=== PATIENT | female | born 1945 | race Caucasian/White ===

== ENCOUNTER → 2018-10-07 10:06 | Outpatient (CLI) | payer OTHER, SELFPAY ==
--- NOTE | 2018-10-07 10:10 | DI.RAD.S_ITS ---
PROCEDURE: XR LUMBAR SPINE 6V W BENDING INDICATIONS: L4/5 Spondylolisthesis TECHNIQUE: 7 views of the lumbar spine acquired. COMPARISON: None. FINDINGS: Bones: 5 nonrib-bearing vertebrae are present. There is grade one anterolisthesis of L4 on L5 No vertebral body compression fractures. No suspicious bony lesions. No gross pars defect is seen on oblique views. Degenerative endplate changes and bilateral facet arthrosis are noted at L4-5 and L5-S1 levels. Soft tissues: Overlying bowel gas pattern is normal. No suspicious soft tissue calcifications. Flexion/extension: There is decreased range of motion, with preserved lumbar spine alignment. IMPRESSION: Grade 1 anterolisthesis of L4 on L5. No gross pars defect is seen. Decreased range of motion with preserved lumbar spine alignment. Mild degenerative disc disease in lower lumbar spine as above. No acute compression fracture. Dictated by: Nolan Martin M.D. on 10/07/2018 at 11:42 Approved by: Nolan Martin M.D. on 10/07/2018 at 11:45
== END ==
PROVIDERS: PCP Family Medicine; Visit Provider Physical Medicine & Rehabilitation
DX: M43.16 Spondylolisthesis, lumbar region (principal); M48.061 Spinal stenosis, lumbar region without neurogenic claudication; M51.36 Other intervertebral disc degeneration, lumbar region
CPT/HCPCS: 72114

== ENCOUNTER → 2019-12-14 14:16 | Outpatient (CLI) | payer OTHER, SELFPAY ==
--- NOTE | 2019-12-14 14:17 | DI.MRI.S_ITS ---
PROCEDURE: MR LUMBAR SPINE WO CON INDICATIONS: L5 radiculopathy TECHNIQUE: Noncontrast sagittal T1 spin echo and T2 fast echo, sagittal STIR, axial T1 and T2 fast spin echo through the lumbar spine. In cases with scoliosis, additional coronal T2 fast spin echo may be performed. COMPARISON: [facility], MR, MR LUMBAR SPINE WO CON, 09/05/2016, 10:58. FINDINGS: Image quality: Excellent. Alignment and Curvature: Grade 1/2 anterolisthesis of L4 on L5. There is suggestion of L4 pars defects, in particular on the left although not well visualized due to superimposed degenerative change. Trace retrolisthesis of L5 on S1 Bone Marrow: No fracture. Multilevel degenerative endplate sclerosis and spurring. Diffuse facet arthropathy. Spinal Cord: Conus medullaris terminates at the L2 level. Visualized cord demonstrates normal signal and size. Paraspinous Soft Tissues: No paravertebral masses. L1-L2: Normal appearance. L2-L3: Normal appearance. L3-L4: Normal appearance. L4-L5: Severe canal stenosis. Complete effacement of both left and right lateral recesses. Moderate right and severe left foraminal stenosis. There is nerve root compression on both sides although left greater than right. However, this appears unchanged since 09/05/16. L5-S1: Mild canal stenosis. Partial effacement of both lateral recesses with bilaterally symmetric appearance. Mild foraminal narrowing. No interval change IMPRESSION: Lower lumbar spondylosis, suspected L4 pars defects and grade 1/2 anterolisthesis of L4 on L5. Associated severe canal narrowing at L4-L5. No interval change Moderate to severe bilateral foraminal stenoses at L4-L5, left greater than right. No interval change Dictated by: Elmo Sanders M.D. on 12/14/2019 at 15:09 Approved by: Elmo Sanders M.D. on 12/14/2019 at 15:16
== END ==
PROVIDERS: PCP Family Medicine; Referring Provider Physical Medicine & Rehabilitation; Visit Provider Physical Medicine & Rehabilitation
DX: M47.26 Other spondylosis with radiculopathy, lumbar region (principal); M48.061 Spinal stenosis, lumbar region without neurogenic claudication; M43.16 Spondylolisthesis, lumbar region
CPT/HCPCS: 72148

== ENCOUNTER → 2020-02-25 10:30 | Outpatient (CLI) | payer OTHER, SELFPAY ==
[2020-02-26 06:01] LABS: COVID19 Sendout Not Detected (Not Detect)
== END ==
PROVIDERS: PCP Family Medicine; Visit Provider Physician Assistant
DX: Z11.59 Encounter for screening for other viral diseases (principal)
CPT/HCPCS: 87635

== ENCOUNTER 2020-02-28 09:27 | Outpatient (CLI) | payer OTHER, SELFPAY ==
[2020-02-28] VITALS (9 sets, daily range): BP systolic 95–131; BP diastolic 54–69; PULSE 25–70; RESP 10–21; TEMP 36.8; O2SAT 97–100
--- NOTE | 2020-02-28 09:30 | DI.RAD.S_ITS ---
PROCEDURE: PAIN L/S TRANSFORAMINAL INJECT INDICATIONS: SPONDYLOSIS COMPARISON: None. FINDINGS: Fluoroscopic spot filming was performed to verify placement of spinal needles at the right-sided L4-5 level, as labeled on the films. Appropriate location(s) of the needle tip(s) was confirmed by injection of iodinated contrast. IMPRESSION: Right-sided L4-5 needle tip localization for epidural steroid injection through the neural foramen. Dictated by: Romario Hurst M.D. on 02/28/2020 at 12:29 Approved by: Romario Hurst M.D. on 02/28/2020 at 12:30
[2020-02-28] MEDS: MIDAZOLAM 5 MG/5 ML VIAL IV (10:42)
[2020-02-28] MEDS: fentaNYL 100 MCG/2 ML INJ 50 MCG IV (10:42)
[2020-02-28] MEDS: IOPAMIDOL 15 ML VIAL 3 ML INJ (10:46)
[2020-02-28] MEDS: BETAMETHASONE 30 MG/5 ML MDV 6 MG INJ (10:46)
[2020-02-28] MEDS: DEXAMETHASONE 10 MG/ML VIAL 20 MG INJ (10:46)
[2020-02-28] MEDS: BUPIVACAINE 0.25% (PF) VIAL 2 ML INJ (10:47)
--- NOTE | 2020-02-28 11:07 | P.PCN_ITS ---
Date/Time/Diagnoses Date of procedure: 02/28/20 Time of procedure: 11:07 Pre-procedure diagnosis: 1. FORAMINAL STENOSIS WITH LE SYMPTOMS Post-procedure diagnosis: same Procedure Notes Procedure: 1. FLUOROSCOPICALLY GUIDED CONTRAST CONTROLLED TRANSFORAMINAL EPIDURAL STEROID INJECTION - RIGHT L4/5 TFESI Indications: Ct is referred by for treatment of Foraminal Stenosis with Right LE Symptoms Physician: Piter Clay Total sedation minutes: 11 Complications: none Procedure in detail & Post-procedure care: FINDINGS Foraminal Nerve Root Compression secondary to disc disease and facet hypertrophy DESCRIPTION OF PROCEDURE Following review of allergy and review of potential side effects and complications, including, but not necessarily limited to, infection, allergic reaction, local tissue breakdown, stroke, temporary or permanent nerve injury, paralysis, and possible , the patient indicated that the patient understood and agreed to proceed. An informed consent document was signed by the patient, witnessed by a nurse, and placed in the patient's chart. Additionally, other treatment options including medications, modalities, and physical therapy were reviewed with the patient. After review of previous anaesthesic history and IV conscious sedation the patient was deemed safe to proceed with today?s procedure with IV conscious sedation as ASA class II designation. Safety time-out was performed to confirm patient ID, procedure to be performed and site of procedure. IV sedation was accomplished with a combination of 2mg of Versed and 50mcg of Fentanyl was administered by the RN after DO order, titrated to patient comfort during the course of the procedure while the patient remained responsive to all verbal commands In the prone position following sterile prep and drape of the lumbar region, the Right L4/5 posterior neuroforamen was identified fluoroscopically. The skin was anesthetized via a 25-gauge 1.5-inch needle with 1% lidocaine solution. At this point, a 25-gauge 3.5-inch spinal needle was atraumatically introduced and advanced under fluoroscopic guidance through the posterior Right L4/5 neuroforamen to approximately the anterior aspect of the canal. Depth was confirmed on lateral view. Following negative aspiration, injection of approximately 1.5cc of Isovue 200 under live fluoroscopy in the AP view confirmed excellent flow along the nerve root, into the epidural space without vascular or intrathecal uptake observed Radiological data, including multiple fluoroscopic views of the lumbosacral spine, reveal a spinal needle at the right L4/5 posterior neuroforamen. Subsequent views show flow of contrast material flowing superiorly and inferiorly along the nerve root confirming epidural flow. Subsequently, a test dose of 1.5 cc of 1% lidocaine solution was administered and patient was observed for two minutes for signs or symptoms of complications, including abdominal pain, shortness of breath, bilateral upper or lower extremit y weakness, nausea and vomiting, prior to steroid injection. At this point, a total of 3cc or 20mg of dexamethasone and 6mg of betamethasone was injected without incident. The procedure tolerated the procedure well without signs or symptoms of complications prior to transfer to the recovery area continued monitoring without incident. The patient was then transferred to the recovery area where they were observed for an appropriate time after the injection. The patient reported a VAS score of 7 prior to the procedure and a post- procedure VAS of 0. POST OP INSTRUCTIONS The patient was provided a Pain Log to continue to record their response to the target-specific procedure prior to follow-up visit with their referring physician. Additionally, specific post-injection care instructions and a contact number to our office were provided if concerns arise regarding possible complications associated with the procedure are suspected.
--- NOTE | 2020-02-28 11:34 | PC.NURSE ---
Pt ready for discharge meeting all requirements and on his way back to the hospital. Vitals 110/60, HR 56 SB, sats 97. Conversing and alert. Tolerating water and cookies. IV removed for discharge. Approximately - pt looked pale, questioned by nurse, patient asked for something to throw up in. As she was vomiting, became nonresponsibe and heart rate noted to show in 20's on tele. Pt's head held straight, turned to right side, code blue called. Team in post procedure room with Dr Clay as well. Pt reclined, turned to right side, IV Narcan given. New PIV placed in RUE. transferred to ER. TINA Meneses called to update.
== END 2020-02-28 11:16 | disposition home or self-care (01) ==
PROVIDERS: PCP Family Medicine; Referring Provider Physical Medicine & Rehabilitation; Visit Provider Physical Medicine & Rehabilitation
DX: M48.061 Spinal stenosis, lumbar region without neurogenic claudication (principal); M51.16 Intervertebral disc disorders with radiculopathy, lumbar region
CPT/HCPCS: 64483; 99152; J0702; J1100; J2250; J3010

== ENCOUNTER 2020-02-28 11:21 | Emergency (ER) | payer OTHER, SELFPAY ==
[2020-02-28] VITALS (9 sets, daily range): BP systolic 120–134; BP diastolic 61–76; PULSE 59–65; RESP 10–30; TEMP 36.4; O2SAT 98–100
--- NOTE | 2020-02-28 11:28 | DI.RAD.S_ITS ---
PROCEDURE: XR CHEST 1V INDICATIONS: cough possible aspiration TECHNIQUE: One view of the chest was acquired. COMPARISON: None. FINDINGS: Surgical changes and devices: None. Lungs and pleura: Lungs are clear. No pleural effusions or pneumothorax. Mediastinum: Mediastinal contours appear normal. Heart size is normal. Bones and chest wall: No suspicious bony lesions. Overlying soft tissues appear unremarkable. IMPRESSION: No evidence acute pulmonary process. Dictated by: Pérez Wilde M.D. on 02/28/2020 at 11:54 Approved by: Pérez Wilde M.D. on 02/28/2020 at 11:54
[2020-02-28] MEDS: ONDANSETRON 4 MG/2 ML INJ (11:33)
[2020-02-28 11:34] LABS: Add Manual Diff / Slide Review NO; Basophils Absolute Auto 0 /uL (0-100); Basophils Percent Auto 0.7 % (0-2); Eosinophils Absolute Auto 0 /uL (0-450); Eosinophils Percent Auto 0.9 % (2-4); Hematocrit 34.2 % (36-46); Hemoglobin 11.4 g/dL (12.0-16.0); Lymphocytes Absolute Auto 1800 /uL (1100-4500); Mean Corpuscular HGB Conc 33.3 % (30-36); Mean Corpuscular Hemoglobin 32.1 PG (26-34); Mean Corpuscular Volume 96.5 fL (80-100); Monocytes Absolute Auto 700 /uL (0-900); Monocytes Percent Auto 13.7 % (3-14); Neutrophils Absolute Auto 2700 /uL (1500-7000); Neutrophils Percent Auto 50.7 % (50-75); Platelet Count 196 X10^3/uL (150-400); Red Blood Cell Count 3.54 X10^6/uL (4.0-5.2); Red Cell Distribution Width 13.4 % (11.6-14.8); White Blood Cell Count 5.3 X10^3/uL (4.5-11.0)
--- NOTE | 2020-02-28 11:34 | ED_ITS ---
HPI - Syncope General Chief Complaint: Syncope Stated Complaint: Code Blue Time Seen by Provider: 02/28/20 11:23 Source: other Mode of arrival: other History of Present Illness HPI narrative: Patient is 75-year-old female who presents as a code blue. She had a spinal injection at L4-L5 today she got 50 micro g of fentanyl and 2 mg of Versed she was getting ready to be released when she passed out and heart rate went into the 20s. She had a brief loss of consciousness but started coming to slowly. She gets dizzy and lightheaded she vomited as well. MD complaint: loss of consciousness Related Data Home Medications Medication Instructions Recorded Confirmed amitriptyline 10 mg tablet 20 mg PO BEDTIME 12/01/18 02/20/20 calcium carbonate 430 mg calcium 450 mg PO BID tab 12/01/18 02/20/20 (1,000 mg) chewable tablet cholecalciferol (vitamin D3) 50 2,300 unit PO BID cap 12/01/18 02/20/20 mcg (2,000 unit) capsule ferrous sulfate 325 mg (65 mg 325 mg PO Q3D tab 12/05/19 02/20/20 iron) tablet Previous Rx's Medication Instructions Recorded gabapentin 300 mg capsule See Rx Instructions .ROUTE 11/23/19 .COMPLEX #90 capsule gabapentin 300 mg capsule 300 mg PO BEDTIME #180 cap 01/02/20 Allergies Allergy/AdvReac Type Severity Reaction Status Date / Time No Known Drug Allergies Allergy Verified 02/20/20 14:39 Review of Systems Review of Systems ROS Unobtainable: All systems reviewed & are unremarkable except as noted in HPI and below Constitutional Constitutional: Denies chills, Denies fever(s), Denies lethargy and Denies weakness Cardiovascular Cardiovascular: Denies chest pain, Denies edema, Reports lightheadedness and Denies dyspnea on exertion Respiratory Respiratory: Denies cough and Denies dyspnea on exertion Gastrointestinal Gastrointestinal: Denies abdominal pain, Reports nausea and Reports vomiting Musculoskeletal Musculoskeletal: Reports back pain and Denies numbness Integumentary/Breasts Skin/Breast: Denies pruritus, Denies erythema, Denies rash and Denies wounds Neurologic Neurologic: Denies numbness and Denies weakness Patient History Medical History Degenerative joint disease of knee (Acute) Gait instability (Acute) Raynauds phenomenon (Acute) Tonsillectomy planned (Acute) Surgical History H/O thyroidectomy (Acute) Social History Smoking Status: Never smoker Smoking Status: Never smoker alcohol intake frequency: 0-2 drinks per day Substance Use Type: does not use Exam Initial Vital Signs Initial Vital Signs: Vital Signs Temperature 97.6 F 02/28/20 11:24 Pulse Rate 65 02/28/20 11:24 Respiratory Rate 18 02/28/20 11:24 Blood Pressure 127/61 02/28/20 11:24 Pulse Oximetry 100 02/28/20 11:24 GENERAL: Pale responsive to voice HEENT: Head atraumatic,EOMI, pupils reactive, face symmetric, [moist] mucous membranes CARDIOVASCULAR: Regular rate and rhythm without murmurs, rubs or gallops. RESPIRATORY: Breath sounds equal bilaterally, no wheezes rales or rhonchi. ABDOMEN: Soft, nontender. Normoactive bowel sounds all 4 quadrants. No guarding or rebound. EXTREMITIES: Normal range of motion, no clubbing or edema. Neurovascularly int act NEUROLOGICAL: Alert and oriented x4. Evp Managing Director strength equal bilaterally SKIN: Warm, dry, no laceration, no petechiae, no rashes or lesions. Course Orders Ordered: ED Orders 02/28/20 11:21 EKG-12 Lead Stat 02/28/20 11:28 XR chest 1V Stat 02/28/20 11:30 Complete Blood Count AUTO DIFF Stat Comprehensive Metabolic Panel Stat 02/28/20 12:14 Troponin & CK Cardiac Panel Stat Vital Signs Vital signs: Vital Signs - 8 hr 02/28/20 11:24 02/28/20 11:26 02/28/20 11:30 Temperature 97.6 F Pulse Rate 65 65 62 Respiratory Rate 18 10 L 30 H Blood Pressure 127/61 120/69 Pulse Oximetry 100 100 100 02/28/20 11:45 02/28/20 12:00 02/28/20 12:15 Temperature Pulse Rate 59 L 61 61 Respiratory Rate 13 25 H 18 Blood Pressure 121/70 121/66 131/74 Pulse Oximetry 100 100 100 02/28/20 12:30 02/28/20 12:45 Temperature Pulse Rate 60 62 Respiratory Rate 19 11 L Blood Pressure 121/73 134/76 Pulse Oximetry 100 100 MDM - Syncope Lab Data Attestation: I reviewed the patient's lab results. Result diagrams: 02/28/20 11:30 02/28/20 11:30 Labs: Lab Results 02/28/20 02/28/20 02/28/20 Range/Units 11:30 11:30 12:14 WBC 5.3 (4.5-11.0) X10^3/uL RBC 3.54 L (4.0-5.2) X10^6/uL Hgb 11.4 L (12.0-16.0) g/dL Hct 34.2 L (36-46) % MCV 96.5 (80-100) fL MCH 32.1 (26-34) PG MCHC 33.3 (30-36) % RDW 13.4 (11.6-14.8) % Plt Count 196 (150-400) X10^3/uL Neut % (Auto) 50.7 (50-75) % Lymph % (Auto) 34.0 (25-40) % Winkler % (Auto) 13.7 (3-14) % Eos % (Auto) 0.9 L (2-4) % Baso % (Auto) 0.7 (0-2) % Neut # (Auto) 2700 (8418-5126) /uL Lymph # (Auto) 1800 (4659-0032) /uL Winkler # (Auto) 700 (0-900) /uL Eos # (Auto) 0 (0-450) /uL Baso # (Auto) 0 (0-100) /uL Sodium 137 (137-145) mmol/L Potassium 3.2 L (3.4-5.1) mmol/L Chloride 112 H (98-107) mmol/L Carbon Dioxide 22 (22-32) mmol/L BUN 12 (7-17) mg/dL Creatinine 0.50 L (0.52-1.04) mg/dL Estimated GFR > 60.0 (>60) mL/min BUN/Creatinine Ratio 24.0 H (6-22) Glucose 88 (80-110) mg/dL Calcium 6.8 L (8.4-10.2) mg/dL Total Bilirubin 0.4 (0.2-1.3) mg/dL AST 23 (14-36) IU/L ALT 10 (<35) IU/L Alkaline Phosphatase 43 (38-126) U/L Total Creatine Kinase 73 (30-135) U/L CK-MB (CK-2) TNP CK-MB (CK-2) Rel Index TNP Troponin I < 0.012 (0.01-0.034) ng/mL Total Protein 5.1 L (6.3-8.2) g/dL Albumin 2.8 L (3.5-5.0) g/dL Globulin 2.3 (1.7-4.1) g/dL Albumin/Globulin Ratio 1.2 (1.0-2.8) Point of Care Testing Glucose POC 100 Imaging Data Chest x-ray: Radiologist's Impression: PROCEDURE: XR CHEST 1V INDICATIONS: cough possible aspiration TECHNIQUE: One view of the chest was acquired. COMPARISON: None. FINDINGS: Surgical changes and devices: None. Lungs and pleura: Lungs are clear. No pleural effusions or pneumothorax. Mediastinum: Mediastinal contours appear normal. Heart size is normal. Bones and chest wall: No suspicious bony lesions. Overlying soft tissues appear unremarkable. IMPRESSION: No evidence acute pulmonary process. Dictated by: Pérez Wilde M.D. on 02/28/2020 at 11:54 Approved by: Pérez Wilde M.D. on 02/28/2020 at 11:54 ECG Data Attestation: I personally reviewed and interpreted this ECG as follows: Prior ECG tracings: not available for review Interpretation: Normal sinus rhythm rate 64 p.r. interval 125 QRS [address] changes MDM Narrative Medical decision making narrative: Strips were found off the monitor it appears that patient Eleazar down into the 40s she vomited passed out and likely had a vasovagal reaction. She was given Narcan initially to reverse the fentanyl however she was slowly starting to come around that time. She had no further vomiting after the Narcan. She did become more responsive the longer she was in the ER. Blood work is overall reassuring she is found to be slightly hypokalemic at this time she declines taking potassium chloride and would rather have her recheck with her primary care provider. Discharge Plan Departure Patient Disposition: Home Clinical Impression: Syncope, vasovagal, Acute hypokalemia Discharge Date/Time: 02/28/20 12:59 Instructions: DI for Syncope in Adults (Fainting) Activity Restrictions/Additional Instructions: *You have been diagnosed with fainting *What to do: Your episode of fainting is likely due to the medication he received for your procedure. Your potassium is noted to be slightly low at 3.2 recommend having it rechecked with your primary care provider. Increase fluids and rest today *Continue to take medications as directed *Follow up with your primary care provider in 2-3 days *Return to ER if you should have increasing shortness of breath, heart palpitations recurrent episode of passing out or any new, worsening or concerning symptoms Prescriptions: No Action gabapentin 300 mg capsule See Rx Instructions .ROUTE .COMPLEX Qty: 90 RF: 2 Antacid Ultra Strength 430 mg calcium (1,000 mg) tablet,chewable 450 mg PO BID RF: 0 cholecalciferol (vitamin D3) 2,000 unit capsule 2,300 unit PO BID RF: 0 ferrous sulfate [FerrouSul] 325 mg (65 mg iron) tablet 325 mg PO Q3D RF: 0 amitriptyline 10 mg tablet 20 mg PO BEDTIME RF: 0 gabapentin 300 mg capsule 300 mg PO BEDTIME Qty: 180 RF: 2 Referrals: Gianluca Vega MD [Primary Care Provider] -
--- NOTE | 2020-02-28 11:42 | PC.NURSE ---
[id number]: responded to Rapid Response in DI recovery. Pt drowsy and appeared to have emesis on shirt, pale, diaphoretic. 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 RN states pt's HR dahiana into the 20's for seconds before vomiting. Pt NSR on monitor at the time of code team arrival. Glucose 100. IV placed and labs drawn. 0.4mg Narcan given IVP. Pt placed on stretcher with cardiac montioring and taken to 6 in ED. AAOx3, NSR 60, EKG obtained by RT, Lungs clear, pt with nonproductive cough which she states started post vomiting. Dr Dhillon made aware and CXR ordered. States she is feeling improvement,just dizzy. NAD. at side. will continue to monitor.
[2020-02-28 11:44] LABS: Alanine Aminotransferase 10 IU/L (<35); Albumin 2.8 g/dL (3.5-5.0); Albumin Globulin Ratio 1.2 (1.0-2.8); Alkaline Phosphatase 43 U/L (38-126); Aspartate Aminotransferase 23 IU/L (14-36); Bilirubin Total 0.4 mg/dL (0.2-1.3); Blood Urea Nitrogen 12 mg/dL (7-17); Calcium 6.8 mg/dL (8.4-10.2); Carbon Dioxide 22 mmol/L (22-32); Chloride 112 mmol/L (98-107); Estimated Glomerular Filt Rate > 60.0 mL/min (>60); Globulin 2.3 g/dL (1.7-4.1); Glucose 88 mg/dL (80-110); HEMOLYSIS < 15 (0-50); Potassium 3.2 mmol/L (3.4-5.1); Sodium 137 mmol/L (137-145); Total Protein 5.1 g/dL (6.3-8.2)
--- NOTE | 2020-02-28 12:00 | PC.NURSE ---
SEE CODE FLOW SHEET FOR ADDITIONAL DOCUMENTATION
[2020-02-28 12:24] LABS: Creatine Kinase 73 U/L (30-135)
[2020-02-28 12:37] LABS: Troponin I < 0.012 ng/mL (0.01-0.034)
== END 2020-02-28 12:59 | disposition home or self-care (01) ==
PROVIDERS: Emergency Provider Emergency Medicine; PCP Family Medicine
DX: R55 Syncope and collapse (principal); E87.6 Hypokalemia; R11.2 Nausea with vomiting, unspecified; R05 Cough; M48.061 Spinal stenosis, lumbar region without neurogenic claudication; M51.16 Intervertebral disc disorders with radiculopathy, lumbar region; M43.16 Spondylolisthesis, lumbar region
CPT/HCPCS: 64483; 71045; 80053; 82550; 84484; 85025; 92950; 93005; 99152; 99283; 99285; J0702; J1100; J2250; J2310; J2405; J3010

== ENCOUNTER → 2020-05-07 09:20 | Outpatient (CLI) | payer OTHER, SELFPAY ==
--- NOTE | 2020-05-07 09:21 | DI.RAD.S_ITS ---
PROCEDURE: XR LUMBAR SPINE MIN 4V COMPARISON: [facility], , XR LUMBAR SPINE 6V W BENDING, 10/07/2018, 10:21. INDICATIONS: low back pain FINDINGS: Five views of the lumbar spine were performed. There is severe facet arthrosis at L4-5 causing grade 1 anterolisthesis and disc disease. The remaining disc spaces are well maintained. The sacroiliac joints have mild degenerative changes. No fracture, dislocation, or vertebral body height loss. A large amount of stool is identified consistent with constipation. IMPRESSION: 1. Degenerative disc disease and facet arthrosis at L4-5 with grade 1 anterolisthesis. 2. Constipation. Dictated by: Ra Stafford M.D. on 05/07/2020 at 9:36 Approved by: Ra Stafford M.D. on 05/07/2020 at 9:39
== END ==
PROVIDERS: PCP Family Medicine; Referring Provider Family Medicine; Visit Provider Physical Medicine & Rehabilitation
DX: M43.16 Spondylolisthesis, lumbar region (principal); M48.061 Spinal stenosis, lumbar region without neurogenic claudication; M51.36 Other intervertebral disc degeneration, lumbar region; M47.816 Spondylosis without myelopathy or radiculopathy, lumbar region; R26.81 Unsteadiness on feet; K59.00 Constipation, unspecified
CPT/HCPCS: 72110; 99213

== ENCOUNTER → 2020-05-21 11:14 | Outpatient (CLI) | payer OTHER, SELFPAY ==
[2020-05-21 12:03] LABS: COVID19 -Nasal RAPID Negative (Negative)
== END ==
PROVIDERS: PCP Family Medicine; Visit Provider Physician Assistant
DX: Z11.59 Encounter for screening for other viral diseases (principal)
CPT/HCPCS: 87635

== ENCOUNTER 2020-05-22 13:47 | Outpatient (CLI) | payer OTHER, SELFPAY ==
[2020-05-22] VITALS (11 sets, daily range): BP systolic 114–138; BP diastolic 61–87; PULSE 71–80; RESP 13–21; TEMP 36.4; O2SAT 93–100
--- NOTE | 2020-05-22 13:48 | DI.RAD.S_ITS ---
PROCEDURE: PAIN L INTERLAMINAR/CAUDAL INJ INDICATIONS: SPONDYLOSIS COMPARISON: None. FINDINGS: Fluoroscopic spot filming was performed to verify placement of spinal needles at the L4-5 paramedian interlaminar level(s), as labeled on the films. Appropriate location(s) of the needle tip(s) was confirmed by injection of iodinated contrast. IMPRESSION: Successful needle tip localization for L4-5 interlaminar epidural steroid injection. Dictated by: Romario Hurst M.D. on 05/22/2020 at 15:26 Approved by: Romario Hurst M.D. on 05/22/2020 at 15:26
[2020-05-22] MEDS: IOPAMIDOL 15 ML VIAL 3 ML INJ (14:24)
[2020-05-22] MEDS: MIDAZOLAM 5 MG/5 ML VIAL IV (14:25)
[2020-05-22] MEDS: BETAMETHASONE 30 MG/5 ML MDV 6 MG INJ (14:25)
[2020-05-22] MEDS: methylPREDNISolone acetate 80 MG/ML VIAL INJ (14:27)
[2020-05-22] MEDS: BUPIVACAINE 0.25% (PF) VIAL 5 ML SUBCUT (14:27)
--- NOTE | 2020-05-22 14:51 | P.PCN_ITS ---
Date/Time/Diagnoses Date of procedure: 05/22/20 Time of procedure: 14:51 Pre-procedure diagnosis: 1. HNP WITH RADICULAR FEATURES, 2. MULTILEVEL CENTRAL STENOSIS, Post-procedure diagnosis: same Procedure Notes Procedure: 1. FLUOROSCOPICALLY GUIDED CONTRAST CONTROLLED INTERLAMINAR EPIDURAL STEROID INJECTION -L4/5 Indications: Ct is referred by Dr. Vega for treatment of Bilateral Foraminal Stenosis R>L LE symptoms. Physician: Piter Clay Total Fluoroscopy time (seconds): 16 Total sedation minutes: 21 Complications: none Procedure in detail & Post-procedure care: FINDINGS Multilevel Central Spinal Stenosis with Nerve Root Compression DESCRIPTION OF PROCEDURE Fluoroscopically guided, contrast-controlled L4/5 translaminar epidural steroid injection. Following review of allergy and review of potential side effects and complications, including, but not necessarily limited to, infection, allergic reaction, local tissue breakdown, temporary as well as permanent nerve injury, paralysis, stroke and possible , the patient indicated that the patient understood and agreed to proceed. An informed consent document was signed by the patient, witnessed by a nurse, and placed in the patient's chart. Additionally, other treatment options including modalities, medications, and physical therapy were reviewed with the patient. After review of previous anaesthesic history and IV conscious sedation the patient was deemed safe to proceed with today?s procedure with IV conscious sedation as ASA class II designation. Safety time-out was performed to confirm patient ID, procedure to be performed and site of procedure. IV sedation was accomplished with a combination of 2mg of Versed was administered by the RN after DO order, titrated to patient comfort during the course of the procedure while the patient remained responsive to all verbal commands In the prone position, following sterile prep and drape of the lumbar region, the L4/5 translaminar space was identified fluoroscopically. The skin was anesthetized via a 25-gauge, 1.5inch needle with 1% lidocaine solution. At this point, a 22-gauge short bevel spinal needle was atraumatically introduced and advanced under fluoroscopic guidance into the region of the L4/5 translaminar space. Depth was confirmed on lateral view. Radiological data, including multiple fluoroscopic views of the lumbar spine, reveal a spinal needle at the L4/5 translaminar space. Lateral views then show placement of the needle in the epidural space. Subsequent views show contrast material flowing superiorly and inferiorly in the epidural space. No vascular or intrathecal uptake is observed. At this point, using loss of resistance technique with saline and air, the epidural space was entered. This was confirmed following negative aspiration with injection of approximately 1.5cc of Isovue 200, showing excellent epidural flow without vascular or intrathecal uptake. At this point, 1cc of 1% lidocaine solution combined with 3cc or 80mg of depomedrol and 12mg betamethasone was injected without incident. The patient tolerated the procedure well without signs or symptoms of complications prior to transfer to the recovery area continued monitoring without incident. The patient was then transferred to the recovery area where they were observed for an appropriate period of time after the injection. The patient reported a VAS score of 6 prior to the procedure and a post- procedure VAS of 0. POST OP INSTRUCTIONS The patient was provided a Pain Log to continue to record their response to the target-specific procedure prior to follow-up visit with their referring physician. Additionally, specific post-injection care instructions and a contact number to our office were provided if concerns arise regarding possible complications associated with the procedure are suspected.
== END 2020-05-22 15:05 | disposition home or self-care (01) ==
LOC: RAD 13:47
PROVIDERS: PCP Family Medicine; Referring Provider Physical Medicine & Rehabilitation; Visit Provider Physical Medicine & Rehabilitation
DX: M51.16 Intervertebral disc disorders with radiculopathy, lumbar region (principal); M48.061 Spinal stenosis, lumbar region without neurogenic claudication
CPT/HCPCS: 62323; 99152; J0702; J1040; J2250; J3010

== ENCOUNTER → 2021-08-12 12:24 | Outpatient (CLI) | payer OTHER, SELFPAY ==
[2021-08-12 14:38] LABS: COVID19 -Nasal RAPID Negative (Negative)
== END ==
PROVIDERS: PCP Family Medicine; Visit Provider Physical Medicine & Rehabilitation
DX: Z20.822 Contact with and (suspected) exposure to COVID-19 (principal)
CPT/HCPCS: 87635; C9803

== ENCOUNTER → 2021-08-13 13:45 | Outpatient (CLI) | payer OTHER, SELFPAY | PROVIDERS: PCP Family Medicine; Referring Provider Physical Medicine & Rehabilitation; Visit Provider Physical Medicine & Rehabilitation | DX: M48.061 Spinal stenosis, lumbar region without neurogenic claudication (principal) | CPT/HCPCS: J0702; J1100; J2250 ==

== ENCOUNTER → 2023-07-08 08:39 | Outpatient (CLI) | payer OTHER, SELFPAY ==
--- NOTE | 2023-07-08 08:40 | DI.RAD.S_ITS ---
PROCEDURE: XR KNEE RT 3V INDICATIONS: RIGHT KNEE PAIN TECHNIQUE: 3 views of the knee were acquired. COMPARISON: None. FINDINGS: Bones: No fractures or dislocations. No suspicious bony lesions. There is a small patellar enthesophyte. Soft tissues: No joint effusion. No suspicious soft tissue calcifications. IMPRESSION: No acute bony abnormality or significant effusion. If pain persists, followup imaging in 5-7 days is recommended to exclude occult fracture. Dictated by: Penny Terrell M.D. on 07/08/2023 at 9:24 Approved by: Penny Terrell M.D. on 07/08/2023 at 9:24
--- NOTE | 2023-07-08 08:40 | DI.RAD.S_ITS ---
PROCEDURE: XR LUMBAR SPINE MIN 4V INDICATIONS: BACK PAIN TECHNIQUE: 5 views of the lumbar spine were acquired, including bilateral oblique views. COMPARISON: [facility], CR, XR LUMBAR SPINE MIN 4V, 05/07/2020, 9:22. FINDINGS: Bones: There are 5 [id number] lumbar vertebral bodies. Grade 2 anterolisthesis is redemonstrated at L4-5 and appears unchanged from the study dated May 07, 2020. Intervertebral disc space narrowing, endplate sclerosis and osteophytosis are redemonstrated at L4-5. Soft tissues: Overlying bowel gas pattern is normal. No suspicious soft tissue calcifications. Oblique images: Extensive artifact from the overlying stool filled bowel and facet sclerosis limits evaluation of the bilateral pars interarticularis at L4-5. IMPRESSION: 1. Anterolisthesis and degenerative change at L4-5. The bilateral pars interarticularis are poorly characterized. Spondylolysis cannot be excluded. CT or MRI of the lumbar spine could be used to further characterize findings if clinically indicated. Dictated by: Penny Terrell M.D. on 07/08/2023 at 9:25 Approved by: Penny Terrell M.D. on 07/08/2023 at 9:31
== END ==
PROVIDERS: PCP Family Medicine; Referring Provider Physical Medicine & Rehabilitation; Visit Provider Physical Medicine & Rehabilitation
DX: M43.16 Spondylolisthesis, lumbar region (principal); M48.061 Spinal stenosis, lumbar region without neurogenic claudication; M47.816 Spondylosis without myelopathy or radiculopathy, lumbar region; M17.11 Unilateral primary osteoarthritis, right knee; I73.00 Raynaud's syndrome without gangrene; M25.561 Pain in right knee; R26.81 Unsteadiness on feet
CPT/HCPCS: 72110; 73562; 99214